=== PATIENT | female | born 1965 | race American Indian/Alaskan Native ===

== ENCOUNTER 2020-12-02 09:33 | Day surgery (SDC) | payer OTHER ==
[~2020-12-02 09:33] MED LIST: SODIUM CHLORIDE 0.9% 1000 ML 1,000 ML IV SCH
--- NOTE | 2020-12-02 10:26 | Anesthesia Consultation ---
Anesthesia Consult and Med Hx Date of service: 12/02/20 - Airway Anesthetic Teeth Evaluation: Good ROM Head & Neck: Adequate Mental/Hyoid Distance: Adequate Mallampati Class: Class II Intubation Access Assessment: Good - Pulmonary Exam CTA: Yes - Cardiac Exam Cardiac Exam: RRR - Pre-Operative Health Status ASA Pre-Surgery Classification: ASA1 Proposed Anesthetic Plan: MAC - Gastrointestinal Hx Gastroesophageal Reflux Disease: Yes
[2020-12-02] MEDS ORDERED: fentaNYL 100 MCG/2 ML INJ ONE (10:27)
[2020-12-02] MEDS ORDERED: propofoL 200 MG/20 ML VIAL IV ONE ×2 (10:27→10:47)
[2020-12-02] MEDS ORDERED: LIDOCAINE MPF (2%) 20 MG/1 ML VIAL 5 ML ONE (10:27)
--- NOTE | 2020-12-02 10:27 | Anesthesia Day of Surgery ---
Anesthesia Day of Surgery - Day of Surgery Patient Examined: Yes Patient H&P Reviewed: Yes Patient is NPO: Yes
--- NOTE | 2020-12-02 11:10 | Procedure Note ---
Date of procedure: 12/02/20 Pre-op diagnosis: GERD/ Colon Polyp Screening Post-op diagnosis: other (Mild to Moderate Erosive Esophagitis/ R/O Eosinophilic Esophagitis/ Gastritis/ No Colon Polyp/No Diverticular Disease/ Moderate, Internal Hemorrhoid) Procedure: EGD with Biopsy/ Colonoscopy Anesthesia: [facility] [place] Surgeon: JIN ROMERO Estimated blood loss: minimal Pathology: list Specimen disposition: to lab Condition: stable Disposition: same day (Treat with PPI. Avoid aspirin and NSAID for 4 days; otherwise resume home medication. Follow upin 1 to 2 weeks ([phone]).)
--- NOTE | 2020-12-02 11:11 | Operative Report ---
PROCEDURE: Esophagogastroduodenoscopy with biopsy. INDICATIONS: This is a 55-year-old female who has been having GERD symptoms. EGD was done to assess for any significant upper GI pathology. DESCRIPTION OF PROCEDURE: The procedure was done after getting MAC anesthesia. Instrument was passed through the hypopharynx into the esophagus, which showed some [id number] erosive esophagitis. Biopsy was done from the distal esophagus to assess for the severity of the erosive esophagitis as well as from the midesophagus to rule out for possible eosinophilic esophagitis. The stomach showed antral gastritis. Biopsy was done from the gastric antrum, gastric body and angular incisura to rule out for H. pylori and atrophic gastritis. The pylorus was patent. The duodenum in the first and the second portion appeared normal. ASSESSMENT: Gastroesophageal reflux disease symptoms, mild to moderate erosive esophagitis, rule out eosinophilic esophagitis, gastritis, no peptic ulcer disease was noted. There was minimal bleeding associated with the procedure. No complications associated with the procedure. ASSESSMENT: Gastroesophageal reflux disease symptoms, mild to moderate erosive esophagitis, rule out eosinophilic esophagitis and gastritis. PLAN: Treat the patient with PPI, have the patient avoid aspirin and aspirin-related products for the next few days. Otherwise, resume home medication. The patient is to have a colonoscopy done as part of colon polyp screening and follow up in the office in 1-2 weeks' time. The procedure was done in the GI lab with assistance of the GI lab team, which included RN, Violet Genao; aguilar Shay and with assistance of anesthesia. [facility]# [id number] CARLEE/RONI
--- NOTE | 2020-12-02 11:25 | Operative Report ---
PROCEDURE: Colonoscopy. INDICATIONS: This is a 55-year-old -[place] female who has a family history of cancer and a colonoscopy was done as part of colon polyp screening. DESCRIPTION OF PROCEDURE: Initial rectal exam was unremarkable. Instrument was passed through the rectum onto the cecum, which was identified with ileocecal valve and the appendiceal orifice. Visualization was fair to good. The terminal ileum was intubated, showed normal mucosa; cecum, ascending colon, transverse colon, descending colon, and sigmoid showed normal mucosa. The rectum, however, showed moderate internal hemorrhoid on the retroverted view. The patient will be asked to take some Anusol-HC suppositories, also will be placed on PPI because of the EGD findings of esophagitis and gastritis and will be asked to follow up in the office in 1-2 weeks' time. The patient will be asked to avoid aspirin and aspirin-related products for 5 days. Resume home medication. The procedure was done in the GI lab with assistance of the GI lab team, which included RN, Violet Genao; Jaspal sheikh and with assistance of anesthesia. JOB# [id number] CARLEE/RONI
--- NOTE | 2020-12-02 12:58 | Post Anesthesia Evaluation ---
- Post Anesthesia Evaluation Patient Participated: Yes Airway Patent: Yes Stable Respiratory Function: Yes Nausea/Vomiting: No Temp > 96.8F: Yes Pain Manageable: Yes Adequeate Hydration: Yes Anesthesia Complications: No
[2020-12-02 16:23] VITALS: BP 134/74
== END 2020-12-02 09:34 | disposition home or self-care (01) ==
LOC: GIO 09:33
DX: Z12.11 Encounter for screening for malignant neoplasm of colon (principal); K21.00 Gastro-esophageal reflux disease with esophagitis, without bleeding; K29.70 Gastritis, unspecified, without bleeding; K64.8 Other hemorrhoids; Z79.899 Other long term (current) drug therapy
CPT/HCPCS: 43239; 45378; 88305; 88342; J2704; J3010; J7030